=== PATIENT | female | born 1985 | race Caucasian/White ===

== ENCOUNTER 2020-03-09 15:35 | Emergency (ER) | payer BC, SELFPAY ==
[2020-03-09 15:33] VITALS: BP 160/110; PULSE 123; RESP 17; TEMP 36.8; O2SAT 100
[2020-03-09 15:50] VITALS: BP 146/88; PULSE 103; RESP 22; O2SAT 97
--- NOTE | 2020-03-09 15:51 | PC.NURSE ---
Pt on bedpan, unable to provide u/a at this time, will try again later per pt.
--- NOTE | 2020-03-09 16:26 | ED.GENADULT ---
HPI - General Adult General Chief complaint: Seizure Stated complaint: seizure Time Seen by Provider: 03/09/20 16:23 Source: patient, family and EMS Mode of arrival: EMS Limitations: no limitations History of Present Illness HPI narrative: Patient is a 34-year-old female with a history of epilepsy, history of grand mal seizures, who presents for evaluation of breakthrough seizure. 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 This lasted approximately 1 minute, patient had episode of urinary incontinence and tongue biting. Unknown who called EMS, but patient believes it was probably her coworkers. Unknown amount of seizure time. Patient was apparently combative per EMS. At the time of arrival, she is alert and oriented to person, place, and to time. She is compliant with her antiepileptic medications. She follows with Dr. Red at [facility]. Patient is on Zosinomide and Lamictal. Related Data Allergies Allergy/AdvReac Type Severity Reaction Status Date / Time No Known Allergies Allergy Verified 03/09/20 18:36 Review of Systems Review of Systems: Narrative: CONSTITUTIONAL: Denies fever, chills, or sweats. EYES: Denies visual changes, redness, or discharge. ENT: Denies rhinorrhea, congestion, sore throat, or otalgia. CARDIOVASCULAR: Denies chest pain, palpitations, or edema. RESPIRATORY: Denies cough or dyspnea. GASTROINTESTINAL: Denies abdominal pain, nausea, vomiting, or diarrhea. GENITOURINARY: Denies dysuria or hematuria. SKIN: Denies rash or itching. MUSCULOSKELETAL: Denies back pain, joint pain, or myalgia. NEUROLOGIC: Denies headache, numbness, or weakness. PSYCHIATRIC: Denies anxiety or depression. [facility] Past Medical History Medical History (Updated 03/09/20 @ 18:36 by Isabella Cerda MD) Epilepsy Social History Social History (Updated 03/09/20 @ 16:54 by Isabella Cerda MD) Smoking status: Never smoker Alcohol intake: never Substance use: never Living arrangements: with family Gender identity (if verbalized by the patient): Female Exam Narrative: Exam Narrative: GENERAL: Awake, alert, conversant HEAD: Normocephalic, atraumatic. EYES: PERRLA and EOMI. ENT: Nares clear, no rhinorrhea or epistaxis. Mucous membranes moist. Tongue abrasion on the right. NECK: Supple. CHEST: No respiratory distress, breathing even and non labored HEART: Tachycardic rate, sinus rhythm ABDOMEN:Non distended, non tender EXTREMITIES: Normal range of motion. No edema. SKIN: Warm, dry, no rash. NEURO:No focal deficits. Alert and oriented x3. EOMs intact without nystagmus. No facial droop/asymmetry noted bilaterally. Grimace intact. Intact sensation in face. Hearing intact bilaterally. Shoulder shrug intact. Strength 5/5 bilateral upper extremities. Strength 5/5 bilateral lower extremities. Ambulatory with a narrow based steady gait. Course Course Emergency Course: Patient presented for evaluation of breakthrough seizure via EMS. At the time of initial assessment, ABCs are intact and vital signs are stable. Physical exam is unremarkable. No focal neurological deficits. Patient has a tongue abrasion. Patient without known trigger for this breakthrough seizure. After I spoke with the on-call physician for her neurology DrDenny, they stated that they did not have in the computer that she was taking Lamictal, and they asked that we draw level for this. It is a send out at our facility. Patient's neurological exam remains stable without neurological changes. She had no recurrent seizure activity. On-call neurologist Dr. Bazan at [facility] recommended a clonazepam bridge, follow-up in their office. Patient was then discharged home. Vital Signs Vital signs: Vital Signs Temperature 36.8 C 03/09/20 15:33 Pulse Rate 123 H 03/09/20 15:33 Respiratory Rate 17 03/09/20 15:33 Blood Pressure 160/110 H 03/09/20 15:33 Pulse Oximetry 100 05/0
[2020-03-09 17:03] VITALS: PULSE 104
[2020-03-09 17:22] LABS: Basophils Absolute Auto 0.1 K/mm3 (0.0-0.1); Basophils Percent Auto 0.7 % (0.2-1.2); Eosinophils Absolute Auto 0.2 K/mm3 (0-0.3); Eosinophils Percent Auto 1.7 % (0-4.4); Hematocrit 52.6 % (37.0-47.0); Hemoglobin 17.3 g/dL (12.0-15.0); Immature Granulocyte Absolute 0.07 K/mm3 (0.00-0.031); Immature Granulocyte Percent A 0.5 % (0-0.5); Lymphocytes Absolute Auto 1.75 K/mm3 (0.9-3.2); Lymphocytes Percent Auto 13.4 % (18.3-44.2); Mean Corpuscular HGB Conc 32.9 g/dl (32-36); Mean Corpuscular Hemoglobin 31.6 pg (26-34); Mean Platelet Volume 8.5 fl (7.4-10.4); Monocytes Absolute Auto 0.9 K/mm3 (0.1-0.6); Monocytes Percent Auto 6.6 % (2.6-8.5); Neutrophils Absolute Auto 10.1 K/mm3 (1.3-6.7); Neutrophils Percent Auto 77.1 % (45.5-73.1); Platelet Count Result 289 k/mm3 (150-375); Red Blood Count 5.48 M/mm3 (4.2-5.4); Red Cell Distribution Width 13.2 % (11.5-14.5); White Blood Count 13.1 K/mm3 (4.5-10.0)
[2020-03-09 17:26] LABS: Add Urine Microscopic? YES; Appearance Urine Clear (Clear); Bacteria Urine Trace /hpf; Bilirubin Urine Negative (Negative); Blood Urine 2+ (Negative); Color Urine Yellow (Yellow); Glucose Urine UA Negative (Negative); Ketones Urine Negative (Negative); Leukocyte Esterase Ur Negative LEU/UL (Negative); Mucus Urine Rare /lpf; Nitrate Urine Negative (Negative); Protein Urine 2+ mg/dL (Negative); RBC Urine 0-2 /hpf (0-2); Specific Grav Ur 1.019 (1.001-1.035); Squamous Epithelial Cell Urine Few /hpf (Few); Urobilinogen Urine Negative mg/dL (<2.0); WBC Urine 0-3 /hpf
[2020-03-09 17:34] LABS: Blood Urea Nitrogen 11 mg/dL (7-17); Calcium 9.7 mg/dL (8.4-10.2); Carbon Dioxide 26 mmol/L (22-30); Chloride 101 mmol/L (98-107); Estimated CRCL calculation 89 ml/min; Estimated Glomerular Filt Rate > 60; Glucose 107 mg/dL (65-105); Potassium 3.8 mmol/L (3.4-5.0); Sodium 137 mmol/L (137-145)
[2020-03-09 19:05] VITALS: BP 138/82; PULSE 89; RESP 17; O2SAT 97
[2020-03-14 11:29] LABS: Lamotrigine Lamictal <0.5 mcg/mL (4.0-18.0)
== END 2020-03-09 19:07 | disposition home or self-care (01) ==
PROVIDERS: Emergency Provider Emergency Medicine
DX: G40.802 Other epilepsy, not intractable, without status epilepticus (principal); R00.0 Tachycardia, unspecified; I45.9 Conduction disorder, unspecified
CPT/HCPCS: 36415; 80048; 80175; 81001; 81025; 85025; 93005; 99283